=== PATIENT | male | born 1970 | race Caucasian/White ===

== ENCOUNTER 2021-01-02 13:05 | Emergency (ER) | payer OTHER ==
[~2021-01-02] VITALS: Ht 185.4 cm; Wt 104.5 kg
[2021-01-02 14:21] LABS: COLOR,URINE YELLOW (Yellow); GLUCOSE, URINE NEGATIVE (Neg); KETONES,URINE NEGATIVE (Neg); LEUKOCYTE ESTERASE ,URINE NEGATIVE (Neg); NITRITES, URINE NEGATIVE (Neg); OCCULT BLOOD,URINE LARGE (Neg); PROTEIN,URINE 30 mg/dl (Neg); UA COLLECTION TYPE VOIDED; UROBILINOGEN,URINE 0.2 E.U/dL (0.2-1.0)
[2021-01-02 14:25] LABS: BASOPHILS % (AUTO) 0.3 % (0-1); EOSINOPHILS % (AUTO) 0.2 % (0-6); HEMATOCRIT 41.8 % (42.0-52.0); HEMOGLOBIN 14.2 g/dl (14.0-17.9); LYMPHOCYTES # (AUTO) 1.1 X10'3 (1.1-4.8); LYMPHOCYTES % (AUTO) 8.3 % (21-51); MEAN CORPUSCULAR HEMOGLOBIN 29.1 PG (27.0-31.0); MEAN CORPUSCULAR HGB CONC 34.1 g/dL (33.0-36.5); MEAN CORPUSCULAR VOLUME 85.5 FL (78-98); MONOCYTES # (AUTO) 1.1 X10'3 (0-0.9); MONOCYTES % (AUTO) 8.3 % (2-12); NEUTROPHILS # (AUTO) 11.1 X10'3 (1.8-7.7); NEUTROPHILS % (AUTO) 82.9 % (42-75); PLATELET COUNT 277 X10'3 (140-440); RED BLOOD COUNT 4.89 X10'6 (4.70-6.10); RED CELL DISTRIBUTION WIDTH 12.9 % (11.5-14.5); WHITE BLOOD COUNT 13.5 X10'3 (4.5-11.0)
[2021-01-02 14:33] LABS: CLARITY,URINE SLIGHTLY CLOUDY (Clear)
[2021-01-02 14:34] LABS: BACTERIA,URINE NONE SEEN /HPF (Neg); RBC,URINE 20-50 /HPF (0-2); SQUAMOUS EPITHELIAL CELL,UR NONE SEEN /LPF (FEW); WBC,URINE 0-4 /HPF (0-4)
[2021-01-02 14:41] LABS: ALANINE AMINOTRANSFERASE 95 U/L (12-78); ALBUMIN 3.9 G/DL (3.4-5.0); ALBUMIN/GLOBULIN RATIO 1.1 (1.1-1.5); ALKALINE PHOSPHATASE 80 IU/L (46-116); ANION GAP 14 (8-16); ASPARTATE AMINO TRANSFERASE 32 U/L (10-37); BILIRUBIN,TOTAL 0.5 MG/DL (0.1-1.0); BLOOD UREA NITROGEN 19 MG/DL (7-18); BUN/CREATININE RATIO 13.6 (5.4-32.0); CALCIUM 9.1 MG/DL (8.5-10.1); CHLORIDE 102 MMOL/L (99-107); GLUCOSE 103 MG/DL (70-104); LIPASE 97 U/L (73-393); SODIUM 136 MMOL/L (135-145); TOTAL CARBON DIOXIDE 19.8 MMOL/L (24-32); TOTAL PROTEIN 7.5 G/DL (6.4-8.2); eGFR 54 ML/MIN
[2021-01-02] MEDS ORDERED: ondansetron 4mg rapidly disintigrating tab PO ONE (15:50)
[2021-01-02] MEDS ORDERED: HYDROcodone/acetaminophen 5mg/325mg tablet PO ONE (15:50)
[2021-01-02 16:31] VITALS: BP 167/108
[2021-01-02] MEDS ORDERED: normal saline 1000ML IV soln IVB ONE (16:45)
[2021-01-02] MEDS ORDERED: ketorolac trometh. 30mg/ml inj. IV ONE (16:45)
[2021-01-02] MEDS ORDERED: levoFLOXACIN 250mg tablet PO ONE (16:45)
[2021-01-02] MEDS ORDERED: LEVO500T90 PO (16:57)
[2021-01-02] MEDS ORDERED: HYDR-3965 PO (16:57)
[2021-01-02] MEDS ORDERED: TADA20TA PO (16:57)
[2021-01-02] MEDS ORDERED: KETO10TA2 PO (16:57)
[2021-01-02] MEDS ORDERED: ONDA4TAB6 PO (16:57)
== END 2021-01-02 17:58 | disposition home or self-care (01) ==
LOC: ER 13:06
DX: N20.1 Calculus of ureter (principal); N23 Unspecified renal colic; N12 Tubulo-interstitial nephritis, not specified as acute or chronic; R31.9 Hematuria, unspecified; R11.2 Nausea with vomiting, unspecified; Z79.2 Long term (current) use of antibiotics; Z79.899 Other long term (current) drug therapy
CPT/HCPCS: 36415; 74176; 80053; 81001; 83690; 85025; 96361; 96374; 99284; J1885; J7030